=== PATIENT | female | born 1990 | race Caucasian/White ===

== ENCOUNTER 2020-02-14 11:08 | Day surgery (SDC) | payer BC ==
[2020-02-14] VITALS (20 sets, daily range): BP systolic 96–115; BP diastolic 53–71
[~2020-02-14] VITALS: Ht 180.3 cm; Wt 83.9 kg
[2020-02-14] MEDS ORDERED: glycopyrrolate 0.2mg/ml inj IV ONE (11:55)
[2020-02-14] MEDS ORDERED: ESCI20TA PO (11:58)
[2020-02-14] MEDS ORDERED: normal saline 1000ml 1,000 ML IV SCH (12:00)
[2020-02-14] MEDS ORDERED: MIDAZolam 1mg/ml 10ml vial IV ONE (12:05)
[2020-02-14] MEDS ORDERED: fentaNYL/PF 50MCG/1 ML 2ML syringe IV ONE (12:05)
[2020-02-14 12:07] LABS: BASOPHILS % (AUTO) 0.7 % (0-1); EOSINOPHILS # (AUTO) 0.1 X10'3 (0-0.9); EOSINOPHILS % (AUTO) 1.1 % (0-6); HEMATOCRIT 38.8 % (35.0-45.0); LYMPHOCYTES # (AUTO) 1.8 X10'3 (1.1-4.8); LYMPHOCYTES % (AUTO) 26.4 % (21-51); MEAN CORPUSCULAR HEMOGLOBIN 29.6 PG (27.0-31.0); MEAN CORPUSCULAR HGB CONC 33.5 g/dL (33.0-36.5); MEAN CORPUSCULAR VOLUME 88.5 FL (78-98); MEAN PLATELET VOLUME 8.1 FL (7.4-10.4); MONOCYTES # (AUTO) 0.5 X10'3 (0-0.9); MONOCYTES % (AUTO) 8.1 % (2-12); NEUTROPHILS # (AUTO) 4.3 X10'3 (1.8-7.7); NEUTROPHILS % (AUTO) 63.7 % (42-75); PLATELET COUNT 287 X10'3 (140-440); RED BLOOD COUNT 4.39 X10'6 (4.20-5.60); RED CELL DISTRIBUTION WIDTH 13.8 % (11.5-14.5); WHITE BLOOD COUNT 6.7 X10'3 (4.5-11.0)
[2020-02-14 12:09] LABS: ALBUMIN 3.5 G/DL (3.4-5.0); ANION GAP 7 (8-16); BLOOD UREA NITROGEN 11 MG/DL (7-18); BUN/CREATININE RATIO 15.7 (6.6-38.0); CALCIUM 8.9 MG/DL (8.5-10.1); CHLORIDE 107 MMOL/L (99-107); GLUCOSE 85 MG/DL (70-104); MAGNESIUM 1.9 MG/DL (1.5-2.4); POTASSIUM 3.8 MMOL/L (3.5-5.1); SODIUM 141 MMOL/L (135-145); TOTAL CARBON DIOXIDE 27.1 MMOL/L (24-32); eGFR > 90 ML/MIN
== END 2020-02-14 15:30 | disposition home or self-care (01) ==
LOC: SSTAY O 11:08
PROVIDERS: ATTEND Internal Medicine Cardiovascular Disease
DX: R07.9 Chest pain, unspecified (principal); I08.1 Rheumatic disorders of both mitral and tricuspid valves; R42 Dizziness and giddiness; R55 Syncope and collapse; Z79.899 Other long term (current) drug therapy; Z98.890 Other specified postprocedural states; Z72.89 Other problems related to lifestyle; Z82.49 Family history of ischemic heart disease and other diseases of the circulatory system; Z80.1 Family history of malignant neoplasm of trachea, bronchus and lung
CPT/HCPCS: 36415; 80048; 83735; 85025; 85610; 93312; 94799; J2250; J3010; J7030; J3490

== ENCOUNTER 2020-06-16 11:52 | Day surgery (SDC) | payer BC ==
[~2020-06-16] VITALS: Ht 180.3 cm; Wt 79.5 kg
[~2020-06-16 11:52] MED LIST: CHOL100025 PO; DICY20TA17 PO; ESCI20TA PO; ONDA4TAB12 PO; PANT40TA54 PO; TRAM50TA2 PO; cefazolin/dext.iso 2gm/100ml IV ONE; famotidine 20mg tablet PO ONE; ringers solution, lacted 1,000 ML IV SCH
[2020-06-16 12:45] VITALS: BP 103/62
[2020-06-16 13:28] LABS: BASOPHILS % (AUTO) 0.7 % (0-1); EOSINOPHILS # (AUTO) 0.1 X10'3 (0-0.9); EOSINOPHILS % (AUTO) 0.9 % (0-6); LYMPHOCYTES % (AUTO) 28.6 % (21-51); MEAN CORPUSCULAR HEMOGLOBIN 28.8 PG (27.0-31.0); MEAN CORPUSCULAR VOLUME 87.4 FL (78-98); MEAN PLATELET VOLUME 8.1 FL (7.4-10.4); MONOCYTES # (AUTO) 0.5 X10'3 (0-0.9); MONOCYTES % (AUTO) 7.9 % (2-12); NEUTROPHILS # (AUTO) 4.3 X10'3 (1.8-7.7); NEUTROPHILS % (AUTO) 61.9 % (42-75); PRE OP HEMATOCRIT 37.9 % (35.0-45.0); PRE OP HEMOGLOBIN 12.5 g/dL (12.0-16.0); PRE OP PLATELET COUNT 261 X10'3 (140-440); RED BLOOD COUNT 4.33 X10'6 (4.20-5.60); RED CELL DISTRIBUTION WIDTH 13.6 % (11.5-14.5)
[2020-06-16] MEDS ORDERED: LIDOcaine 1% 30ml preserv. free vial ONE (13:32)
[2020-06-16] MEDS ORDERED: BUPIVAcaine/PF 2.5 mg/ml (0.25%) 30ml vial ONE (13:32)
[2020-06-16 13:37] LABS: PREOP HCG, QL SERUM NEGATIVE (NEGATIVE)
[2020-06-16] MEDS ORDERED: neostigmine methylsulfate 1 MG/ML 10ml vial ONE (13:38)
[2020-06-16] MEDS ORDERED: dexamethasone sod phosphate 10mg/ml inj ONE (13:38)
[2020-06-16] MEDS ORDERED: sevoflurane 250ml liquid IH ONE (13:38)
[2020-06-16] MEDS ORDERED: glycopyrrolate 0.2mg/ml inj ONE (13:38)
[2020-06-16] MEDS ORDERED: fentaNYL/PF 50MCG/1 ML 2ML syringe ONE (13:39)
[2020-06-16] MEDS ORDERED: LIDOcaine 2% (20mg/ml) 5ml vial ONE (13:40)
[2020-06-16] MEDS ORDERED: fentaNYL/PF 50MCG/1 ML 2ML syringe IV PRN ×2 (13:40)
[2020-06-16] MEDS ORDERED: midazolam 1 mg/ML 2ml injection ONE (13:40)
[2020-06-16] MEDS ORDERED: ondansetron/PF 4mg/2ml inj IV PRN (13:40)
[2020-06-16] MEDS ORDERED: morphine 2 MG/ML inj. syringe IV PRN (13:40)
[2020-06-16] MEDS ORDERED: hydrALAZINE 20mg/ml inj. IV PRN (13:40)
[2020-06-16] MEDS ORDERED: propofol inj 20 ML IV ONE (13:40)
[2020-06-16] MEDS ORDERED: morphine 4 MG/ML inj SYRINge IV PRN (13:40)
[2020-06-16] MEDS ORDERED: ringers solution, lacted 1,000 ML IV SCH (13:40)
[2020-06-16] MEDS ORDERED: labetalol 20mg/4ml (5mg/ml) syringe IV PRN (13:40)
[2020-06-16] MEDS ORDERED: rocuronium 10mg/ml inj IV ONE (13:41)
[2020-06-16] MEDS ORDERED: ondansetron/PF 4mg/2ml inj ONE (13:41)
[2020-06-16 13:42] LABS: ALBUMIN 3.4 G/DL (3.4-5.0); ALBUMIN/GLOBULIN RATIO 0.9 (1.1-1.5); ALKALINE PHOSPHATASE 59 IU/L (46-116); BLOOD UREA NITROGEN 9 MG/DL (7-18); BUN/CREATININE RATIO 14.3 (6.6-38.0); CALCIUM 8.9 MG/DL (8.5-10.1); CHLORIDE 105 MMOL/L (99-107); CREATININE 0.63 MG/DL (0.40-0.90); PRE OP ALT 29 U/L (30-65); PRE OP ANION GAP 7 (8-16); PRE OP AST 16 U/L (10-37); PRE OP BILIRUB, TOTAL 0.5 MG/DL (0.0-1.0); PRE OP GLUCOSE 75 MG/DL (70-104); PRE OP POTASSIUM 3.6 MMOL/L (3.4-5.1); PRE OP SODIUM 137 MMOL/L (135-145); TOTAL CARBON DIOXIDE 24.6 MMOL/L (24-32); eGFR > 90 ML/MIN
[2020-06-16] MEDS ORDERED: acetaminophen 1,000mg/100ml IV 100 ML IV ONE (14:24)
[2020-06-16 15:00] VITALS: BP 126/88
[2020-06-16] MEDS ORDERED: oxyCODONE/APAP 5-325mg tablet PO PRN (15:00)
--- NOTE | 2020-06-16 15:00 | NUR ---
Received from OR via , accompanied by Anesthesiologist DR RHODES and report given by Anesthesiolgist. AWAKENS TO VOICE. VITALS STABLE. INC SITES DI. EFRAÍN PAIN. ABD SOFT.
[2020-06-16 15:10] VITALS: BP 124/75
[2020-06-16 15:20] VITALS: BP 113/71
[2020-06-16 15:30] VITALS: BP 116/74
[2020-06-16] MEDS ORDERED: HYDROcodone/acetaminophen 10/325mg tab PO ONE (15:35)
[2020-06-16 15:40] VITALS: BP 118/73
--- NOTE | 2020-06-16 16:00 | NUR ---
AWAKE AND ORIENTED. VITALS STABLE. DRESSINGS DI. EFRAÍN PAIN. HOME WITH A FRIEND AT THIS TIME.
== END 2020-06-16 16:00 | disposition home or self-care (01) ==
LOC: PAS 11:52
PROVIDERS: ATTEND Surgery
DX: R10.9 Unspecified abdominal pain (principal); K56.699 Other intestinal obstruction unspecified as to partial versus complete obstruction; N83.202 Unspecified ovarian cyst, left side; N83.201 Unspecified ovarian cyst, right side; K63.89 Other specified diseases of intestine; F32.9 Major depressive disorder, single episode, unspecified; F41.9 Anxiety disorder, unspecified; K21.9 Gastro-esophageal reflux disease without esophagitis; Z98.890 Other specified postprocedural states; Z79.899 Other long term (current) drug therapy
CPT/HCPCS: 36415; 49320; 80053; 84703; 85025; J0131; J1100; J2001; J2250; J2405; J2704; J2710; J3010; J3490; J7120; S2900; A4215; A4618